=== PATIENT | female | born 1950 | race Two or more races ===

== ENCOUNTER 2018-03-02 08:09 | Outpatient (CLI) | payer OTHER | END 2018-03-02 08:36 | disposition home or self-care (01) | LOC: RAD 08:09 → MRI 08:15 → RAD 08:36 → MAMO-SONO 08:45 | DX: M25.511 Pain in right shoulder (principal); M25.521 Pain in right elbow; M25.562 Pain in left knee; E11.69 Type 2 diabetes mellitus with other specified complication; E78.2 Mixed hyperlipidemia; E03.8 Other specified hypothyroidism; F33.1 Major depressive disorder, recurrent, moderate; E66.09 Other obesity due to excess calories; E64.0 Sequelae of protein-calorie malnutrition; Z68.37 Body mass index [BMI] 37.0-37.9, adult; E55.9 Vitamin D deficiency, unspecified; E07.89 Other specified disorders of thyroid; Z12.31 Encounter for screening mammogram for malignant neoplasm of breast; Z87.898 Personal history of other specified conditions; M81.0 Age-related osteoporosis without current pathological fracture | CPT/HCPCS: 73221 ==

== ENCOUNTER → 2018-03-02 | Outpatient (CLI) | payer OTHER ==
[~2018-03-02] MED LIST: NABUMETONE500 MG PO; PERCOCET 5/3251 TAB PO; SYNTHROID137 MCG PO; [UNRECOGNIZED DRUG - OTHER] PO
== END | disposition home or self-care (01) ==
LOC: NUCLEAR 10:00
DX: M81.0 Age-related osteoporosis without current pathological fracture (principal); E07.89 Other specified disorders of thyroid; E11.69 Type 2 diabetes mellitus with other specified complication; E78.2 Mixed hyperlipidemia; E03.8 Other specified hypothyroidism; F33.1 Major depressive disorder, recurrent, moderate; E66.09 Other obesity due to excess calories; E64.0 Sequelae of protein-calorie malnutrition; Z68.37 Body mass index [BMI] 37.0-37.9, adult; E55.9 Vitamin D deficiency, unspecified; M25.561 Pain in right knee; G89.4 Chronic pain syndrome

== ENCOUNTER → 2019-04-02 | Outpatient (CLI) | payer OTHER | END | disposition home or self-care (01) | LOC: LAB 12:15 | DX: R10.9 Unspecified abdominal pain (principal) ==

== ENCOUNTER 2019-04-09 11:48 | Outpatient (CLI) | payer OTHER | END 2019-04-09 12:00 | disposition home or self-care (01) | LOC: MAMO-SONO 11:48 | DX: Z12.31 Encounter for screening mammogram for malignant neoplasm of breast (principal); Z87.898 Personal history of other specified conditions; N60.11 Diffuse cystic mastopathy of right breast; N60.12 Diffuse cystic mastopathy of left breast ==

== ENCOUNTER 2019-04-12 07:22 | Outpatient (CLI) | payer OTHER | END 2019-04-12 07:26 | disposition home or self-care (01) | LOC: TOM 07:22 | DX: E03.8 Other specified hypothyroidism (principal); F33.1 Major depressive disorder, recurrent, moderate; E66.09 Other obesity due to excess calories; E64.0 Sequelae of protein-calorie malnutrition; Z68.37 Body mass index [BMI] 37.0-37.9, adult; E55.9 Vitamin D deficiency, unspecified; M25.561 Pain in right knee; G89.4 Chronic pain syndrome; E11.69 Type 2 diabetes mellitus with other specified complication; E78.2 Mixed hyperlipidemia | CPT/HCPCS: 74177; Q9965 ==

== ENCOUNTER 2019-04-21 07:39 | Outpatient (CLI) | payer OTHER | END 2019-04-21 07:43 | disposition home or self-care (01) | LOC: SONOGRAMA 07:39 | DX: E04.1 Nontoxic single thyroid nodule (principal) ==

== ENCOUNTER 2020-11-24 10:33 | Outpatient (CLI) | payer OTHER | END 2020-11-24 10:45 | disposition home or self-care (01) | LOC: TOM 10:33 | PROVIDERS: ATTEND Internal Medicine Endocrinology, Diabetes & Metabolism | DX: E04.1 Nontoxic single thyroid nodule (principal) ==

== ENCOUNTER 2021-03-15 07:39 | Outpatient (CLI) | payer OTHER | END 2021-03-15 07:42 | disposition home or self-care (01) | LOC: SONOGRAMA 07:39 | PROVIDERS: ATTEND Pathology Anatomic Pathology & Clinical Pathology | DX: N64.89 Other specified disorders of breast (principal) ==

== ENCOUNTER 2021-10-04 14:01 | Outpatient (CLI) | payer OTHER | END 2021-10-04 14:02 | disposition home or self-care (01) | LOC: NUCLEAR 14:01 | PROVIDERS: ATTEND Internal Medicine | DX: N63.0 Unspecified lump in unspecified breast (principal); M81.0 Age-related osteoporosis without current pathological fracture ==

== ENCOUNTER 2021-10-04 15:12 | Outpatient (CLI) | payer OTHER | END 2021-10-04 15:16 | disposition home or self-care (01) | LOC: MAMO-SONO 15:12 | PROVIDERS: ATTEND Internal Medicine | DX: N63.0 Unspecified lump in unspecified breast (principal); M81.0 Age-related osteoporosis without current pathological fracture ==

== ENCOUNTER 2022-08-27 12:22 | Outpatient (CLI) | payer OTHER | END 2022-08-27 12:25 | disposition home or self-care (01) | LOC: SONOGRAMA 12:22 | PROVIDERS: ATTEND Internal Medicine | DX: E03.9 Hypothyroidism, unspecified (principal) ==

== ENCOUNTER 2022-11-11 07:34 | Outpatient (CLI) | payer OTHER | END 2022-11-11 09:26 | disposition home or self-care (01) | LOC: SONOGRAMA 07:34 | PROVIDERS: ATTEND Internal Medicine Gastroenterology | DX: R10.11 Right upper quadrant pain (principal) ==

== ENCOUNTER 2022-12-09 13:09 | Outpatient (CLI) | payer OTHER | END 2022-12-09 13:15 | disposition home or self-care (01) | LOC: MAMO-SONO 13:09 | PROVIDERS: ATTEND Obstetrics & Gynecology | DX: Z12.31 Encounter for screening mammogram for malignant neoplasm of breast (principal); N60.11 Diffuse cystic mastopathy of right breast; N60.12 Diffuse cystic mastopathy of left breast ==

== ENCOUNTER 2024-02-06 11:08 | Outpatient (CLI) | payer OTHER | END 2024-02-06 11:09 | disposition home or self-care (01) | LOC: NUCLEAR 11:08 | PROVIDERS: ATTEND Internal Medicine | DX: M81.0 Age-related osteoporosis without current pathological fracture (principal) ==

== ENCOUNTER 2024-02-06 11:45 | Outpatient (CLI) | payer OTHER | END 2024-02-06 11:47 | disposition home or self-care (01) | LOC: MAMO-SONO 11:45 | PROVIDERS: ATTEND Internal Medicine | DX: N60.02 Solitary cyst of left breast (principal); N60.01 Solitary cyst of right breast; M81.8 Other osteoporosis without current pathological fracture; Z12.31 Encounter for screening mammogram for malignant neoplasm of breast ==

== ENCOUNTER 2024-08-16 11:16 | Outpatient (CLI) | payer OTHER | END 2024-08-16 11:20 | disposition home or self-care (01) | LOC: RAD 11:16 | PROVIDERS: ATTEND Internal Medicine | DX: J20.9 Acute bronchitis, unspecified (principal) ==